=== PATIENT | female | born 1985 | race Two or more races ===

== ENCOUNTER 2018-07-18 14:06 | Emergency (ER) | payer OTHER, MEDICAID ==
--- NOTE | 2018-07-18 16:03 | EDPHY ---
H & P Stated Complaint: n/v/d ?fever chills since sunday Time Seen by Provider: 07/18/18 16:03 HPI/ROS: CHIEF COMPLAINT: Subjective fever, vomiting and diarrhea HISTORY OF PRESENT ILLNESS: Patient presents the ED with subjective fever, vomiting and diarrhea which has been present since Sunday. The patient denies any sore throat, cough or congestion. She denies any complaints of acute abdominal pain. She denies any complaints of flank pain or dysuria. The patient reports that she is previously healthy. She takes no regular medications. She has no significant surgical history. The patient reports that she is experiencing loss of appetite and moderate ongoing vomiting and diarrhea. Patient denies any recent antibiotic use. She denies any travel outside the [place]. REVIEW OF SYSTEMS: A comprehensive 10 point review of systems is otherwise negative aside from elements mentioned in the history of present illness. Source: Patient Exam Limitations: No limitations - Personal History LMP (Females 10-55): Over 28 Days Ago Current Tetanus Diphtheria and Acellular Pertussis (TDAP): Yes - Medical/Surgical History Hx Asthma: No Hx Chronic Respiratory Disease: No Hx Diabetes: No Hx Cardiac Disease: No Hx Renal Disease: No Hx Cirrhosis: No Hx Alcoholism: No Hx HIV/AIDS: No Hx Splenectomy or Spleen Trauma: No Other PMH: None - Social History Smoking Status: Former smoker - Physical Exam Exam: General Appearance: Obese female, no acute distress Eyes: Pupils equal and round no pallor or injection ENT, Mouth: Mucous membranes moist Respiratory: There are no retractions, lungs are clear to auscultation Cardiovascular: Regular rate and rhythm Gastrointestinal: Abdomen is soft and nontender, no masses, bowel sounds normal Neurological: 5/5 strength all 4 extremities Skin: Warm and dry, no rashes Musculoskeletal: Neck is supple nontender Extremities: symmetrical, full range of motion Constitutional: Initial Vital Signs Temperature (C) 36.7 C 07/18/18 14:20 Heart Rate 109 H 07/18/18 14:20 Respiratory Rate 18 07/18/18 14:20 Blood Pressure 120/74 07/18/18 14:20 O2 Sat (%) 95 07/18/18 14:20 O2 Delivery Mode Room Air Allergies/Adverse Reactions: No Known Allergies Allergy (Verified 07/18/18 14:20) Home Medications: Medication Instructions Recorded Ondansetron Odt [Zofran Odt] 4 mg PO Q4PRN PRN #20 tab 07/18/18 Medical Decision Making ED Course/Re-evaluation: Patient presents the ED with vomiting and diarrhea. She has no complaints of abdominal pain has abdominal tenderness noted on exam. She has had a subjective fever but is afebrile in the emergency department. Laboratory studies are noteworthy for a mild transaminitis. Patient received IV fluids and Zofran in the emergency department. At this point time I suspect gastroenteritis. She has been informed for slightly elevated LFTs in the need to have this followed up with primary care. Patient will be discharged home with a prescription for Zofran. She is given customary aftercare instructions and return precautions. Differential Diagnosis: Differential diagnosis considered includes gastroenteritis, dehydration, pancreatitis, hepatitis - Data Points Laboratory Results: Laboratory Results 07/18/18 16:35 07/18/18 16:35 07/18/18 07/18/18 07/18/18 16:35 16:35 16:35 WBC 8.09 10^3/uL 10^3/uL (3.80-9.50) RBC 5.93 10^6/uL H 10^6/uL (4.18-5.33) Hgb 17.2 g/dL H g/dL (12.6-16.3) Hct 49.7 % H % (38.0-47.0) MCV 83.8 fL fL (81.5-99.8) MCH 29.0 pg pg (27.9-34.1) MCHC 34.6 g/dL g/dL (32.4-36.7) RDW 13.7 % % (11.5-15.2) Plt Count 273 10^3/uL 10^3/uL (150-400) MPV 10.4 fL fL (8.7-11.7) Neut % (Auto) 60.3 % % (39.3-74.2) Lymph % (Auto) 25.0 % % (15.0-45.0) Sandoval % (Auto) 12.7 % % (4.5-13.0) Eos % (Auto) 1.2 % % (0.6-7.6) Baso % (Auto) 0.4 % % (0.3-1.7) Nucleat RBC Rel Count 0.0 % % (0.0-0.2) Absolute Neuts (auto) 4.88 10^3/uL 10^3/uL (1.70-6.50) Absolute Lymphs (auto) 2.02 10^3/uL 10^3/uL (1.00-3.00) Absolute Monos (auto) 1.03 10^3/uL H 10^3/uL (0.30-0.80) Absolute Eos (auto) 0.10 10^3/uL 10^3/uL (0.03-0.40) Absolute Basos (auto) 0.03 10^3/uL 10^3/uL (0.02-0.10) Absolute Nucleated RBC 0.00 10^3/uL 10^3/uL (0-0.01) Immature Gran % 0.4 % % (0.0-1.1) Immature Gran # 0.03 10^3/uL 10^3/uL (0.00-0.10) Sodium 134 mEq/L L mEq/L (135-145) Potassium 3.8 mEq/L mEq/L (3.5-5.2) Chloride 98 mEq/L mEq/L (97-110) Carbon Dioxide 21 mEq/l L mEq/l (22-31) Anion Gap 15 mEq/L H mEq/L (6-14) BUN 25 mg/dL H mg/dL (7-23) Creatinine 0.9 mg/dL mg/dL (0.6-1.0) Estimated GFR > 60 Glucose 99 mg/dL mg/dL (70-100) Calcium 8.8 mg/dL mg/dL (8.5-10.4) Total Bilirubin 0.7 mg/dL mg/dL (0.1-1.4) Conjugated Bilirubin 0.3 mg/dL mg/dL (0.0-0.5) Unconjugated Bilirubin 0.4 mg/dL mg/dL (0.0-1.1) AST 99 IU/L H IU/L (14-46) ALT 100 IU/L H IU/L (9-52) Alkaline Phosphatase 88 IU/L IU/L (38-126) Total Protein 7.7 g/dL g/dL (6.3-8.2) Albumin 4.4 g/dL g/dL (3.5-5.0) Lipase 84 IU/L IU/L (23-300) Beta HCG, Qual NEGATIVE Medications Given: Discontinued Medications Sodium Chloride (Ns) 1,000 mls @ 0 mls/hr IV EDNOW ONE; Wide Open PRN Reason: Protocol Stop: 07/18/18 16:18 Last Admin: 07/18/18 16:31 Dose: 1,000 mls Sodium Chloride (Ns) 1,000 mls @ 0 mls/hr IV EDNOW ONE; Wide Open PRN Reason: Protocol Stop: 07/18/18 16:18 Last Admin: 07/18/18 16:31 Dose: 1,000 mls Ondansetron HCl (Zofran) 4 mg IVP EDNOW ONE Stop: 07/18/18 16:23 Last Admin: 07/18/18 16:32 Dose: 4 mg Departure - Departure Disposition: Home, Routine, Self-Care Clinical Impression: Gastroenteritis Condition: Good Instructions: Gastroenteritis (ED) Additional Instructions: 1. Zofran as needed for nausea and vomiting. 2. You may take Imodium as needed for diarrhea. 3. Your laboratory studies are all normal aside from slightly elevated liver function tests that are just outside the range of normal. Given her lack of abdominal tenderness I recommend having a primary care provider recheck this in the next 1-2 weeks. 4. Please return to the ED for markedly worsening symptoms such is abdominal pain, high fever, intractable vomiting or other concerns.
[2018-07-18] MEDS ORDERED: NS 1,000 ML IV ONE ×2 (16:17)
[2018-07-18] MEDS ORDERED: ONDANSETRON 4 MG/2 ML VIAL IVP ONE (16:22)
[2018-07-18 17:10] LABS: PLATELET COUNT 273 10^3/uL (150-400)
[2018-07-18 17:39] VITALS: BP 128/85
== END 2018-07-18 17:49 | disposition home or self-care (01) ==
DX: K52.9 Noninfective gastroenteritis and colitis, unspecified (principal); E86.9 Volume depletion, unspecified
CPT/HCPCS: 96374